=== PATIENT | male | born 2000 | race Two or more races ===

== ENCOUNTER 2022-01-29 20:01 | Emergency (ER) | payer OTHER, MEDICAID ==
[~2022-01-29] VITALS: Ht 190.5 cm; Wt 86.6 kg
[2022-01-29 20:20] VITALS: BP 144/95
== END 2022-01-29 23:24 | disposition left against medical advice (07) ==
LOC: ER 20:01
DX: R10.9 Unspecified abdominal pain (principal); R11.10 Vomiting, unspecified; Z53.21 Procedure and treatment not carried out due to patient leaving prior to being seen by health care provider